=== PATIENT | male | born 1950 | race Caucasian/White ===

== ENCOUNTER 2018-11-10 08:18 | Emergency (ER) | payer BC, MEDICARE ==
[~2018-11-10] VITALS: Ht 180.3 cm; Wt 100.0 kg
[~2018-11-10 08:18] MED LIST: ASPIRIN 32325 MG/TAB PO; ASPIRIN 81M81 MG/TA2 PO; CRESTOR40 MG PO; FISH OIL 1000MG1 CAP PO; LIPITOR 40MG TA40 MG PO; LIPITOR20 MG PO; LOPRESSOR 225 MG/TAB PO; LUTEIN6 MG PO; MULTAQ400 MG PO; MULTIPLE VITAMI1 TAB PO; OCUVITE1 TA1 PO; PLAVIX 75MG TAB75 MG PO; PROPECIA1 MG PO; TAMBOCOR 1100 MG/TAB PO; TOPROL XL 25MG25 MG PO; [UNRECOGNIZED DRUG - OTHER] PO
[2018-11-10 08:20] VITALS: TEMP 97.8
[2018-11-10 08:45] LABS: BASO % 0.2 % (0.0-2.0); EOS # 0.1 (0.0-0.7); EOS % 1.2 % (0-4.0); GRAN # 4.9 (1.4-6.5); GRAN % 59.6 % (42.2-75.2); HEMATOCRIT 44.4 % (42.0-52.0); HEMOGLOBIN 16.1 g/dl (13.5-18.0); LYMPH # 2.3 (1.2-3.4); LYMPH % 28.5 % (20.0-51.0); MEAN CELL VOLUME 89 fl (80.0-100.0); MEAN CORPUSCULAR HEMOGLOBIN 32 pg (27.0-31.0); MEAN CORPUSCULAR HGB CONC 36 g/dl (33.0-37.0); MEAN PLATELET VOLUME 9.5 fl (7.4-10.4); MONO # 0.8 (0.1-0.6); MONO % 10.3 % (1.7-9.3); PLATELET COUNT 181 K/mm3 (130-400); RED BLOOD COUNT 4.97 M/mm3 (4.20-5.60); REDCELL DISTRIBUTION WIDTH-CV 11.9 % (11.5-14.5)
[2018-11-10] MEDS ORDERED: INDOCIN50 MG PO (08:55)
[2018-11-10 08:56] LABS: BILIRUBIN,TOTAL 1.1 mg/dL (0.0-1.0); CALCIUM 9.6 mg/dL (8.4-10.2); CREATININE, serum 0.95 (0.66-1.25); MAGNESIUM 2.1 mg/dL (1.6-2.3); POTASSIUM 4.1 mmol/L (3.4-5.0); TOTAL PROTEIN 7.1 gm/dL (6.4-8.2)
[2018-11-10] MEDS ORDERED: NEXIUM 20MG20 MG PO (10:03)
[2018-11-10 10:18] VITALS: BP 128/77; PULSE 54
== END 2018-11-10 10:20 | disposition home or self-care (01) ==
LOC: COL.ER 08:18
PROVIDERS: Emergency Medicine
DX: I49.3 Ventricular premature depolarization (principal); I48.91 Unspecified atrial fibrillation; I25.10 Atherosclerotic heart disease of native coronary artery without angina pectoris; R53.81 Other malaise; Z95.1 Presence of aortocoronary bypass graft; Z79.82 Long term (current) use of aspirin
CPT/HCPCS: J2060